=== PATIENT | female | born 1975 | race American Indian/Alaskan Native ===

== ENCOUNTER 2017-10-26 06:29 | Emergency (ER) | payer SELFPAY ==
[2017-10-26 08:09] LABS: Bilirubin,Urine NEG (Negative); Blood,Urine NEG (Negative); Ketones,Urine NEG (Negative); Leukocyte Esterase,Urine NEG (Negative); Mucus,Urine FEW /HPF; Nitrite,Urine NEG (Negative); Protein,Urine <15 mg/dL mg/dL (Negative); Urobilinogen,Urine < 2.0 mg/dL (<2.0); WBC,Urine < 1.0 /HPF (0.0-6.0)
[2017-10-26 08:28] LABS: Basophils % (Auto) 0.5 % (0.0-1.8); Eosinophils % (Auto) 0.7 % (0.0-4.3); Hematocrit 39.4 % (30.3-42.9); Hemoglobin 13.2 gm/dl (10.1-14.3); Mean Corpuscular HGB Conc 34 % (30-34); Mean Corpuscular Hemoglobin 30 pg (28-32); Mean Corpuscular Volume 91 fl (79-97); Platelet Count 188 K/mm3 (140-440); Red Blood Count 4.35 M/mm3 (3.65-5.03); Red Cell Distribution Width 13.7 % (13.2-15.2); White Blood Count 5.2 K/mm3 (4.5-11.0)
[2017-10-26 09:01] LABS: Alanine Aminotransferase 17 units/L (7-56); Albumin 3.8 g/dL (3.9-5); Albumin/Globulin Ratio 1.1 %; Alkaline Phosphatase 80 units/L (35-129); Anion Gap 17 mmol/L; BUN/Creatinine Ratio 30; Blood Urea Nitrogen 15 mg/dL (7-17); Carbon Dioxide 25 mmol/L (22-30); Chloride 101.7 mmol/L (98-107); Glucose 93 mg/dL (65-100); Lipase 21 units/L (13-60); Potassium 4.2 mmol/L (3.6-5.0); Sodium 139 mmol/L (137-145); Total Protein 7.3 g/dL (6.3-8.2)
[2017-10-26] MEDS ORDERED: TORADOL IV ONE (12:04)
[2017-10-26] MEDS ORDERED: ZOFRAN IV ONE (12:04)
[2017-10-26] MEDS ORDERED: MORPHINE IV ONE (12:04)
--- NOTE | 2017-10-26 12:53 | Cat Scan Report ---
CT ABDOMEN PELVIS WITH CONTRAST: HISTORY: Right lower quadrant abdominal pain. COMPARISON: none. TECHNIQUE: Helical CT in 1.25mm intervals following IV contrast. Sagittal and coronal reconstructions. FINDINGS: Lung bases: normal. Liver: normal. Biliary system: Cholecystectomy. No biliary dilatation. Pancreas: normal. Spleen: normal. Kidneys/ureters/bladder: normal. Adrenal glands: normal. Aorta: normal. Intestines: normal. Appendix: normal. Pelvic viscera: 1.6 cm right ovarian cyst. The uterus and left ovary are unremarkable. No pelvic fluid collection. Musculoskeletal: normal. IMPRESSION: 1.6 cm right ovarian cyst. No acute inflammatory process. Cholecystectomy.
--- NOTE | 2017-10-26 13:56 | Emergency Department Report ---
ED Abdominal Pain HPI - General Chief Complaint: Abdominal Pain Stated Complaint: ABD/BACK PAIN Time Seen by Provider: 10/26/17 10:25 Source: patient Mode of arrival: Ambulatory Limitations: No Limitations - History of Present Illness Initial Comments: 42-year-old female with a past medical history of previous cholecystectomy and C -section presents to the hospital complaints of right lower abdominal pain that radiates to the right flank times one week. Contrary to triage patient denies dysuria. She also denies frequency, vaginal discharge, nausea, vomiting, fever , or hematuria. Patient is tolerating by mouth intake. Pain is intermittent, sharp, rated 8/10 in intensity, and worse with palpation. Patient is sexually active with one partner and does not use condoms. Severity scale (0 -10): 8 - Related Data Previous Rx's Medication Instructions Recorded Last Taken Type Cyclobenzaprine [Flexeril 10 MG 10 mg PO TID PRN #30 tablet 06/25/15 Unknown Rx TAB] Ibuprofen [Motrin 600 MG tab] 600 mg PO Q8H PRN #30 tablet 06/25/15 Unknown Rx Famotidine [Pepcid] 20 mg PO BID #20 tablet 03/29/16 Unknown Rx Sulfamethoxazole/Trimethoprim 1 each PO BID #20 tablet 03/29/16 Unknown Rx [Bactrim DS TAB] diphenhydrAMINE [Benadryl CAP] 25 mg PO Q6HR PRN #20 capsule 03/29/16 Unknown Rx methylPREDNISolone [Medrol] 4 mg PO DAILY #1 tab.ds.pk 03/29/16 Unknown Rx HYDROcodone/APAP 5-325 [[place] 1 each PO Q6HR PRN #20 tablet 10/26/17 Unknown Rx 5-325 mg TAB] Ibuprofen [Motrin] 800 mg PO Q8HR PRN #30 tablet 10/26/17 Unknown Rx Allergies Allergy/AdvReac Type Severity Reaction Status Date / Time apple AdvReac Swelling Verified 02/14/15 15:41 peanut AdvReac Swelling Verified 02/14/15 15:41 sumatriptan [From Imitrex] AdvReac Swelling Verified 02/14/15 15:41 sumatriptan succinate AdvReac Swelling Verified 02/14/15 15:41 [From Imitrex] tomato AdvReac Itching Verified 02/14/15 15:41 tree nut AdvReac Swelling Verified 02/14/15 15:41 ED Review of Systems ROS: Stated complaint: ABD/BACK PAIN Other details as noted in HPI Comment: All other systems reviewed and negative Other: Constitutional: No fevers chills Eyes: No eye pain visual changes ENT: No ear pain or throat pain Neck: Denies pain Respiratory: Denies cough wheezing shortness of breath Cardiovascular: Denies chest pain, palpitations, syncope GI: as per HPI Musculoskeletal: Denies back pain, joint swelling Skin: Denies rash, lesions, erythema Neurologic: Denies headache, numbness, weakness ED Past Medical Hx - Past Medical History Previous Medical History?: Yes Hx Headaches / Migraines: Yes Additional medical history: Hypoglycemia; "calcium build up"; syncopy - Surgical History Past Surgical History?: Yes Hx Cholecystectomy: Yes Additional Surgical History: x 2, heart cath in 2013 - Social History Smoking Status: Never Smoker Substance Use Type: Alcohol - Medications Home Medications: Home Medications Medication Instructions Recorded Confirmed Last Taken Type Cyclobenzaprine [Flexeril 10 MG 10 mg PO TID PRN #30 tablet 06/25/15 Unknown Rx TAB] Ibuprofen [Motrin 600 MG tab] 600 mg PO Q8H PRN #30 tablet 06/25/15 Unknown Rx Famotidine [Pepcid] 20 mg PO BID #20 tablet 03/29/16 Unknown Rx Sulfamethoxazole/Trimethoprim 1 each PO BID #20 tablet 03/29/16 Unknown Rx [Bactrim DS TAB] diphenhydrAMINE [Benadryl CAP] 25 mg PO Q6HR PRN #20 capsule 03/29/16 Unknown Rx methylPREDNISolone [Medrol] 4 mg PO DAILY #1 tab.ds.pk 03/29/16 Unknown Rx HYDROcodone/APAP 5-325 [[place] 1 each PO Q6HR PRN #20 tablet 10/26/17 Unknown Rx 5-325 mg TAB] Ibuprofen [Motrin] 800 mg PO Q8HR PRN #30 tablet 10/26/17 Unknown Rx ED Physical Exam - General Limitations: No Limitations - Other Other exam information: General: No limitations, patient is alert in no acute distress Head exam: Atraumatic, normocephalic Eyes exam: Normal appearance, nonicteric sclera ENT: Moist mucous membrane, normal oropharynx Neck exam: Normal inspection, full range of motion, no meningismus nontender Respiratory exam: Clear to auscultation bilateral, no wheezes, rales, crackles Cardiovascular: Normal rate and rhythm, normal heart sounds Abdomen: Soft, nondistended, right lower quadrant tenderness, no rebound or guarding : Minimal vaginal discharge, no CMT, positive adnexal tenderness on the right Extremity: Full range of motion normal inspection no deformity Back: Normal Inspection, full range of motion, no tenderness Neurologic: Alert, oriented x3, cranial nerves intact, no motor or sensory deficit Psychiatric: normal affect, normal mood Skin: Warm, dry, intact ED Course Vital Signs 10/26/17 10/26/17 10/26/17 06:31 07:12 08:12 Temperature 98.3 F 98.3 F Pulse Rate 91 H 88 Respiratory 18 18 16 Rate Blood Pressure 134/86 134/86 Blood Pressure [Left] O2 Sat by Pulse 99 99 Oximetry 10/26/17 10/26/17 10/26/17 08:15 08:30 09:00 Temperature 98.3 F Pulse Rate 73 75 84 Respiratory 21 22 13 Rate Blood Pressure 124/76 Blood Pressure 123/72 [Left] O2 Sat by Pulse 99 99 98 Oximetry 10/26/17 10/26/17 10/26/17 09:30 10:00 10:38 Temperature Pulse Rate 78 75 88 Respiratory 11 L 18 17 Rate Blood Pressure 125/83 129/78 134/80 Blood Pressure [Left] O2 Sat by Pulse 98 99 99 Oximetry 10/26/17 10/26/17 10/26/17 11:00 11:30 12:00 Temperature Pulse Rate 76 78 87 Respiratory 15 15 21 Rate Blood Pressure 140/79 129/78 139/70 Blood Pressure [Left] O2 Sat by Pulse 99 96 98 Oximetry 10/26/17 10/26/17 10/26/17 12:40 13:13 13:30 Temperature Pulse Rate 85 Respiratory 20 Rate Blood Pressure 132/63 127/72 122/71 Blood Pressure [Left] O2 Sat by Pulse 100 94 Oximetry 10/26/17 10/26/17 10/26/17 14:00 14:30 15:00 Temperature Pulse Rate Respiratory Rate Blood Pressure 132/70 130/76 134/71 Blood Pressure [Left] O2 Sat by Pulse 98 94 97 Oximetry - Reevaluation(s) Reevaluation #1: 10/26/17 13:55 Patient treated with morphine, Zofran, and Toradol for pain ED Medical Decision Making - Lab Data Result diagrams: 10/26/17 07:42 10/26/17 07:42 Lab Results 10/26/17 10/26/17 10/26/17 Range/Units 07:34 07:42 07:42 WBC 5.2 (4.5-11.0) K/mm3 RBC 4.35 (3.65-5.03) M/mm3 Hgb 13.2 (10.1-14.3) gm/dl Hct 39.4 (30.3-42.9) % MCV 91 (79-97) fl MCH 30 (28-32) pg MCHC 34 (30-34) % RDW 13.7 (13.2-15.2) % Plt Count 188 (140-440) K/mm3 Lymph % (Auto) 23.9 (13.4-35.0) % [place] % (Auto) 10.1 H (0.0-7.3) % Eos % (Auto) 0.7 (0.0-4.3) % Baso % (Auto) 0.5 (0.0-1.8) % Lymph # 1.2 (1.2-5.4) K/mm3 [place] # 0.5 (0.0-0.8) K/mm3 Eos # 0.0 (0.0-0.4) K/mm3 Baso # 0.0 (0.0-0.1) K/mm3 Seg Neutrophils % 64.8 (40.0-70.0) % Seg Neutrophils # 3.4 (1.8-7.7) K/mm3 Sodium 139 (137-145) mmol/L Potassium 4.2 (3.6-5.0) mmol/L Chloride 101.7 (98-107) mmol/L Carbon Dioxide 25 (22-30) mmol/L Anion Gap 17 mmol/L BUN 15 (7-17) mg/dL Creatinine 0.5 L (0.7-1.2) mg/dL Estimated GFR > 60 ml/min BUN/Creatinine Ratio 30 % Glucose 93 (65-100) mg/dL Calcium 9.0 (8.4-10.2) mg/dL Total Bilirubin 0.30 (0.1-1.2) mg/dL AST 14 (5-40) units/L ALT 17 (7-56) units/L Alkaline Phosphatase 80 (35-129) units/L Total Protein 7.3 (6.3-8.2) g/dL Albumin 3.8 L (3.9-5) g/dL Albumin/Globulin Ratio 1.1 % Lipase 21 (13-60) units/L Urine Color Yellow (Yellow) Urine Turbidity Clear (Clear) Urine pH 5.0 (5.0-7.0) Ur Specific [place] 1.023 (1.003-1.030) Urine Protein <15 mg/dl (Negative) mg/dL Urine Glucose (UA) Neg (Negative) mg/dL Urine Ketones Neg (Negative) mg/dL Urine Blood Neg (Negative) Urine Nitrite Neg (Negative) Urine Bilirubin Neg (Negative) Urine Urobilinogen < 2.0 (<2.0) mg/dL Ur Leukocyte Esterase Neg (Negative) Urine WBC (Auto) < 1.0 (0.0-6.0) /HPF Urine RBC (Auto) 1.0 (0.0-6.0) /HPF U Epithel Cells (Auto) 3.0 (0-13.0) /HPF Urine Mucus Few /HPF Urine HCG, Qual Negative (Negative) - Radiology Data Radiology results: report reviewed CT abdomen and pelvis IV contrast: 1.6 cm right ovarian cyst. Previous cholecystectomy. No acute inflammatory process - Medical Decision Making Plan to discharge her home with pain medication for pain for ovarian cyst. Wet prep negative. Gonorrhea and chlamydia pending. [employer] follow-up will be encouraged. - Differential Diagnosis ovarian cyst, cervicitis, PID, renal colic, UTI, appendicitis Critical Care Time: No Critical care attestation.: If time is entered above; I have spent that time in minutes in the direct care of this critically ill patient, excluding procedure time. ED Disposition Clinical Impression: Right ovarian cyst Disposition: DC-01 TO HOME OR SELFCARE Is pt being admited?: No Does the pt Need Aspirin: No Condition: Stable Instructions: Ovarian Cyst (ED) Additional Instructions: Take the medication as prescribed. Return if symptoms worsen Prescriptions: HYDROcodone/APAP 5-325 [[place] 5-325 mg TAB] 1 each PO Q6HR PRN #20 tablet PRN Reason: Pain Ibuprofen [Motrin] 800 mg PO Q8HR PRN #30 tablet PRN Reason: Pain Referrals: [facility] [Provider Group] - 3-5 Days Time of Disposition: 15:27
[2017-10-26] MEDS ORDERED: DILAUDID IV ONE (14:03)
[2017-10-26 15:18] VITALS: BP 134/71
== END 2017-10-26 16:46 | disposition home or self-care (01) ==
LOC: ED 06:29
DX: N83.201 Unspecified ovarian cyst, right side (principal); G43.909 Migraine, unspecified, not intractable, without status migrainosus; Z88.8 Allergy status to other drugs, medicaments and biological substances; Z91.018 Allergy to other foods
CPT/HCPCS: 36415; 74177; 80053; 81001; 81025; 83690; 85025; 87210; 87591; 96374; 96375; 99284; J1170; J1885; J2270; J2405; Q9967

== ENCOUNTER 2020-02-09 15:58 | Emergency (ER) | payer BC ==
--- NOTE | 2020-02-09 17:29 | Emergency Department Report ---
Blank Doc - Documentation Documentation: 44-year-old female that presents with left foot pain. This initial assessment/diagnostic orders/clinical plan/treatment(s) is/are subject to change based on patient's health status, clinical progression and re- assessment by fellow clinical providers in the ED. Further treatment and workup at subsequent clinical providers discretion. Patient/guardians urged not to elope from the ED as their condition may be serious if not clinically assessed and managed. Initial orders include: 1- Patient sent to [facility] for further evaluation and treatment 2- xrays
[2020-02-09 17:31] VITALS: BP 146/94
--- NOTE | 2020-02-09 18:32 | XRay Report ---
LEFT FOOT 3 VIEWS INDICATION / CLINICAL INFORMATION: MAIN: foot pain; Patient states, she is having left foot pain in the location of the dorsal toe joint s; NO RECENT INJURY. COMPARISON: None available. FINDINGS: No skeletal abnormalities. No radiographic evidence of arthropathy. Signer Name: Hu So MD Signed: 02/09/2020 6:27 PM Workstation Name: [id number]
--- NOTE | 2020-02-09 20:51 | Emergency Department Report ---
ED General Adult HPI - General Chief complaint: Extremity Problem,Nontraumatic Stated complaint: LFTFOOT PAIN/SWELLING Time Seen by Provider: 02/09/20 17:28 Source: patient Mode of arrival: Ambulatory Limitations: No Limitations - History of Present Illness Initial comments: This is a 44-year-old female presents to ED complaining of left lower foot pain and swelling for the past 3 days. Patient states that she was coming down some steps and when she got down the last step as she applied pressure she felt a sharp pain to her foot. Patient states that swelling began yesterday. Patient denies any injury falls or trauma. Patient states that pain is worsened with applied pressure. She describes pain as throbbing localized to the dorsal aspect of the foot. She denies fever/chills/nausea vomiting/any medical conditions Severity scale (0 -10): 9 - Related Data Previous Rx's Medication Instructions Recorded Last Taken Type Cyclobenzaprine [Flexeril 10 MG 10 mg PO TID PRN #30 tablet 06/25/15 Unknown Rx TAB] Ibuprofen [Motrin 600 MG tab] 600 mg PO Q8H PRN #30 tablet 06/25/15 Unknown Rx Famotidine [Pepcid] 20 mg PO BID #20 tablet 03/29/16 Unknown Rx Sulfamethoxazole/Trimethoprim 1 each PO BID #20 tablet 03/29/16 Unknown Rx [Bactrim DS TAB] diphenhydrAMINE [Benadryl CAP] 25 mg PO Q6HR PRN #20 capsule 03/29/16 Unknown Rx methylPREDNISolone [Medrol] 4 mg PO DAILY #1 tab.ds.pk 03/29/16 Unknown Rx HYDROcodone/APAP 5-325 [[place] 1 each PO Q6HR PRN #20 tablet 10/26/17 Unknown Rx 5-325 mg TAB] Ibuprofen [Motrin] 800 mg PO Q8HR PRN #30 tablet 10/26/17 Unknown Rx HYDROcodone/APAP 5-325 [[place] 1 each PO Q6HR PRN #10 tablet 02/09/20 Unknown Rx 5/325] Prednisone [predniSONE 10 mg 10 mg PO .TAPER #1 tab.ds.pk 02/09/20 Unknown Rx (6-Day Pack, 21 Tabs)] Allergies Allergy/AdvReac Type Severity Reaction Status Date / Time apple AdvReac Swelling Verified 03/31/15 15:41 peanut AdvReac Swelling Verified 02/14/15 15:41 sumatriptan [From Imitrex] AdvReac Swelling Verified 02/14/15 15:41 sumatriptan succinate AdvReac Swelling Verified 02/14/15 15:41 [From Imitrex] tomato AdvReac Itching Verified 02/14/15 15:41 tree nut AdvReac Swelling Verified 02/14/15 15:41 ED Review of Systems ROS: Stated complaint: LFTFOOT PAIN/SWELLING Other details as noted in HPI ED Past Medical Hx - Past Medical History Hx Headaches / Migraines: Yes Additional medical history: Hypoglycemia; "calcium build up"; syncopy - Surgical History Hx Cholecystectomy: Yes Additional Surgical History: x 2, heart cath in 2013 - Social History Smoking Status: Never Smoker - Medications Home Medications: Home Medications Medication Instructions Recorded Confirmed Last Taken Type Cyclobenzaprine [Flexeril 10 MG 10 mg PO TID PRN #30 tablet 06/25/15 Unknown Rx TAB] Ibuprofen [Motrin 600 MG tab] 600 mg PO Q8H PRN #30 tablet 06/25/15 Unknown Rx Famotidine [Pepcid] 20 mg PO BID #20 tablet 03/29/16 Unknown Rx Sulfamethoxazole/Trimethoprim 1 each PO BID #20 tablet 03/29/16 Unknown Rx [Bactrim DS TAB] diphenhydrAMINE [Benadryl CAP] 25 mg PO Q6HR PRN #20 capsule 03/29/16 Unknown Rx methylPREDNISolone [Medrol] 4 mg PO DAILY #1 tab.ds.pk 03/29/16 Unknown Rx HYDROcodone/APAP 5-325 [[place] 1 each PO Q6HR PRN #20 tablet 10/26/17 Unknown Rx 5-325 mg TAB] Ibuprofen [Motrin] 800 mg PO Q8HR PRN #30 tablet 10/26/17 Unknown Rx HYDROcodone/APAP 5-325 [[place] 1 each PO Q6HR PRN #10 tablet 02/09/20 Unknown Rx 5/325] Prednisone [predniSONE 10 mg 10 mg PO .TAPER #1 tab.ds.pk 02/09/20 Unknown Rx (6-Day Pack, 21 Tabs)] ED Physical Exam - General Limitations: No Limitations General appearance: alert, in no apparent distress - Head Head exam: Present: atraumatic, normocephalic - Eye Eye exam: Present: normal appearance - ENT ENT exam: Present: mucous membranes moist - Neck Neck exam: Present: normal inspection - Respiratory Respiratory exam: Present: normal lung sounds bilaterally. Absent: respiratory distress - Cardiovascular Cardiovascular Exam: Present: regular rate, normal rhythm. Absent: systolic murmur, diastolic murmur, rubs, gallop - GI/Abdominal GI/Abdominal exam: Present: soft, normal bowel sounds - Extremities Exam Extremities exam: Present: normal inspection, full ROM, tenderness (To palpation of the anterior aspect of the foot), normal capillary refill, joint swelling. Absent: pedal edema, calf tenderness - Back Exam Back exam: Present: normal inspection - Neurological Exam Neurological exam: Present: alert, oriented X3, normal gait (Ambulatory with normal gait, no limping) - Psychiatric Psychiatric exam: Present: normal affect, normal mood - Skin Skin exam: Present: warm, dry, intact, normal color. Absent: rash ED Course Vital Signs 02/09/20 02/09/20 16:04 17:30 Temperature 99.1 F 99.1 F Pulse Rate 105 H Respiratory 16 16 Rate Blood Pressure 146/94 Blood Pressure 146/94 [Left] O2 Sat by Pulse 98 Oximetry ED Medical Decision Making - Radiology Data Radiology results: report reviewed, image reviewed - Medical Decision Making This 44-year-old female who presents the ED with arthritis foot pain and some swelling. Patient did note that she is always had some swelling to her foot. Patient states that pain is just throbbing in nature. Patient does not have any medical conditions such as gout, diabetes or hypertension. Vital signs are normal patient is in no acute distress. Discussed with patient need to see studio model. Diagnostic Technologist referral was given to patient. X-rays were completed x-ray shows no acute findings. Patient understands instructions and will follow-up Critical care attestation.: If time is entered above; I have spent that time in minutes in the direct care of this critically ill patient, excluding procedure time. ED Disposition Clinical Impression: Left foot pain, Swelling of foot joint Disposition: DC-01 TO HOME OR SELFCARE Is pt being admited?: No Does the pt Need Aspirin: No Condition: Stable Instructions: Arthralgia (ED) Additional Instructions: Make sure to follow up with the primary care physician as discussed. Take all your medications as you've been prescribed. If you have any worsening symptoms or develop new symptoms please return to ED immediately. Prescriptions: HYDROcodone/APAP 5-325 [[place] 5/325] 1 each PO Q6HR PRN #10 tablet PRN Reason: Pain Prednisone [predniSONE 10 mg (6-Day Pack, 21 Tabs)] 10 mg PO .TAPER #1 tab.ds.pk Referrals: PRIMARY CARE, [Primary Care Provider] - 3-5 Days [facility] [Outside] - 3-5 Days [facility] [Outside] - 3-5 Days DACIA GARCIA MD [Staff Physician] - 3-5 Days NEGRA WEEMS DPM [Staff Physician] - 3-5 Days Forms: Accompanied Note, Work/School Release Form(ED) Time of Disposition: 20:51
== END 2020-02-09 21:01 | disposition home or self-care (01) ==
LOC: ED 15:58
DX: M79.672 Pain in left foot (principal); R60.0 Localized edema; Z91.018 Allergy to other foods; Z91.010 Allergy to peanuts
CPT/HCPCS: 99283